=== PATIENT | female | born 1970 | race Caucasian/White ===

== ENCOUNTER 2019-07-25 22:11 | Emergency (ER) | payer SELFPAY ==
[2019-07-25] MEDS ORDERED: methylPREDNISolone Sod Succ/PF 125 MG/2 ML VIAL ONE (22:59)
[2019-07-25] MEDS ORDERED: Famotidine/PF 20 mg/2ml Vial ONE (22:59)
== END 2019-07-26 00:01 | disposition home or self-care (01) ==
LOC: ERS 22:11
DX: T78.1XXA Other adverse food reactions, not elsewhere classified, initial encounter (principal); J45.909 Unspecified asthma, uncomplicated
CPT/HCPCS: 96361; 96374; 96375; J2930; S0028